=== PATIENT | male | born 1950 | race Caucasian/White ===

== ENCOUNTER 2019-07-17 00:01 | Emergency (ER) | payer MEDICARE ==
[~2019-07-17] VITALS: Ht 182.9 cm; Wt 79.6 kg
[2019-07-17 00:41] VITALS: BP 141/67
== END 2019-07-17 07:35 | disposition left against medical advice (07) ==
LOC: ER 00:16
DX: Z53.21 Procedure and treatment not carried out due to patient leaving prior to being seen by health care provider (principal)